=== PATIENT | male | born 1985 | race Caucasian/White ===

== ENCOUNTER 2018-04-26 21:14 | Emergency (ER) | payer BC | END 2018-04-26 21:24 | disposition left against medical advice (07) | LOC: ER 21:14 | DX: R09.89 Other specified symptoms and signs involving the circulatory and respiratory systems (principal); Z53.21 Procedure and treatment not carried out due to patient leaving prior to being seen by health care provider ==

== ENCOUNTER → 2020-07-13 | Outpatient (CLI) | payer BC ==
--- NOTE | 2020-07-13 16:02 | MRI ---
Study: MRI of the Left Knee. Indication: MEDIAL MENISCUS INJURY Technique: Multiplanar, multi sequence MRI of the left knee was obtained without intravenous contrast. Comparison: None Findings: ACL, PCL, and lateral collateral ligament complex intact. MCL is lax and bowed indicating sequela of a prior MCL sprain. No acute tear. Vertical parrot beak type radial tear posterior horn medial meniscus. Lateral meniscus intact. Areas of grade 2 chondral thinning medial and lateral knee compartments. Low-grade tendinosis quadriceps tendon insertion. Patellar tendon intact. Patella normally located. Grade 2/3 chondrosis midline femoral trochlea. Small knee effusion. Small Almanza's cyst. No acute fracture. Impression: Vertical parrot beak type radial tear posterior horn medial meniscus. Grade 2 chondral thinning medial and lateral knee compartments. Grade 2-3 chondrosis midline femoral trochlea. Small knee effusion. Additional findings as above. Electronically signed by: Russ Howard MD 07/13/2020 4:00 PM CDT
== END ==
LOC: MRI 07:56
PROVIDERS: ATTEND Orthopaedic Surgery
DX: S83.242A Other tear of medial meniscus, current injury, left knee, initial encounter (principal); M94.262 Chondromalacia, left knee; M25.462 Effusion, left knee

== ENCOUNTER → 2020-07-18 | Outpatient (CLI) | payer BC | LOC: LAB.O 09:05 | PROVIDERS: ATTEND Orthopaedic Surgery | DX: Z01.818 Encounter for other preprocedural examination (principal) ==

== ENCOUNTER 2020-07-27 05:21 | Day surgery (SDC) | payer BC ==
[2020-07-27] MEDS ORDERED: SODIUM CHL 0.9% 100ML MINI-BAG 100 ML IVPB ONE (06:40)
[2020-07-27] MEDS ORDERED: LACTATED RINGERS 1,000 ML ONE (06:41)
[2020-07-27] MEDS ORDERED: ceFAZolin SODIUM 1 GM VIAL ONE (06:41)
[2020-07-27] MEDS ORDERED: DEXAMETHASONE INJ 10 MG/ML VIAL ONE (07:00)
[2020-07-27] MEDS ORDERED: KETOROLAC TROMETHAMINE INJ 30 MG/ML VIAL ONE (07:00)
[2020-07-27] MEDS ORDERED: LIDOCAINE 1% 10 ML VIAL INJ ONE (07:00)
[2020-07-27] MEDS ORDERED: ONDANSETRON INJ 4 MG/2 ML VIAL ONE (07:00)
[2020-07-27] MEDS ORDERED: PROPOFOL 200 MG/20 ML VIAL IV ONE (07:00)
[2020-07-27] MEDS ORDERED: MIDAZOLAM INJ 2 MG/2 ML VIAL ONE (11:24)
[2020-07-27] MEDS ORDERED: fentaNYL CITRATE INJ 50 MCG/ML AMP ONE (11:25)
[2020-07-27] MEDS ORDERED: BUPIVACAINE 0.5% 30 ML VIAL INJ ONE (11:31)
[2020-07-27] MEDS: VANCOMYCIN HCL INJ 1,000 MG VIAL IVPB ONE ×2 (12:23→12:47)
[2020-07-27] MEDS: ceFAZolin SODIUM 1 GM VIAL ONE ×3 (12:23→12:47)
[2020-07-27] MEDS: BUPIVACAINE LIPOSOME 13.3 MG/ML VIAL INJ ONE ×2 (12:24→12:48)
[2020-07-27 14:24] VITALS: BP 129/68; TEMP 97.8; O2SAT 99
--- NOTE | 2020-08-03 11:22 | OP ---
DATE OF PROCEDURE: 07/27/20 PREOPERATIVE DIAGNOSIS: 1. Medial meniscus tear. POSTOPERATIVE DIAGNOSIS: 1. Large flap of cartilage off the posteromedial condyle abutting the posterior horn of the medial meniscus. 2. Small flap of cartilage off the medial femoral condyle articular surface. 3. Chondral fissuring on the medial tibial plateau. PROCEDURE: 1. Debridement of cartilage. SURGEON: Devin Bunch MD. BOILERMAKER WELDER: Evan Weaver CST, SA-C. ANESTHESIA: General anesthesia. COMPLICATIONS: None. FINDINGS: 1. Grade 3 fissuring of the cartilage on the medial tibial plateau. 2. Stable medial meniscus. 3. Flap of cartilage off the articular surface of the medial femoral condyle. 4. Large flap of cartilage abutting the posterior horn of the medial meniscus off the posterior medial condyle. 5. Normal ACL, normal PCL. 6. Normal lateral compartment. 7. Normal lateral gutter. 8. Normal suprapatellar pouch. 9. Normal patellofemoral joint. 10. Normal medial gutter. INDICATION: Dillon has a history of pain in the knee that has been associated with what was felt to be some mechanical symptoms. MRI was suspicious for a meniscus tear. We discussed options for him. After discussing the risks, benefits and alternatives to operative therapy, the patient has given informed consent for arthroscopy. PROCEDURE: The patient was brought to the Operating Room and placed in supine position. General anesthesia was induced and the patient's leg was sterilely prepped and draped. Following prepping and draping, standard anteromedial and anterolateral portals were established. Diagnostic arthroscopy was carried out with the above findings. Attention was then focused on the posterior medial condyle. Through a lateral portal with the camera in the medial portal, a shaver was used to debride that flap. It was thoroughly probed to ensure it had been fully debrided and there was no remaining cartilage at that flap. Care was taken to ensure removal of all debris associated with that. The shaver was also used to remove the flap of cartilage off the medial femoral condyle. The knee was thoroughly irrigated and drained. Following draining of the knee, the wounds were closed with Nylon suture. Sterile dressings were placed. The patient was awoken from anesthesia and taken to Recovery. POSTOPERATIVE PLAN: The patient will be non-weightbearing until he follows up with us in two days. [id number]
== END 2020-07-27 14:20 | disposition home or self-care (01) ==
LOC: AMB 05:21
PROVIDERS: ATTEND Orthopaedic Surgery
DX: M94.8X6 Other specified disorders of cartilage, lower leg (principal); M25.862 Other specified joint disorders, left knee
CPT/HCPCS: 01400; 29877; 80307; J0690; J1100; J1885; J2250; J2405; J3010; J3370; J3490; J7050; J7120

== ENCOUNTER → 2020-08-05 | Outpatient (CLI) | payer BC ==
--- NOTE | 2020-08-05 12:05 | US ---
EXAM DESCRIPTION: Venous,Lower Extremity LT CLINICAL HISTORY: SWELLING COMPARISON: None Available. TECHNIQUE: Left lower extremity venous duplex FINDINGS: The left common femoral, superficial femoral, and popliteal veins are fully compressible. The proximal calf veins are compressible. The left great saphenous vein is patent. No deep venous thrombosis identified. There is normal color flow observed with adequate flow augmentation. IMPRESSION: 1. Negative for deep vein thrombosis (DVT) of the left lower extremity. Electronically signed by: Daniel Barnes DO 08/05/2020 12:02 PM CDT
== END ==
LOC: US 08:44
PROVIDERS: ATTEND Orthopaedic Surgery
DX: R22.42 Localized swelling, mass and lump, left lower limb (principal)